=== PATIENT | female | born 1985 | race Caucasian/White ===

== ENCOUNTER → 2020-08-26 14:55 | Outpatient (BNVA) | payer MEDICAID, SELFPAY | PROVIDERS: Family Provider Obstetrics & Gynecology; Visit Provider Obstetrics & Gynecology | DX: Z34.90 Encounter for supervision of normal pregnancy, unspecified, unspecified trimester (principal) | CPT/HCPCS: 81000; 86803 ==

== ENCOUNTER → 2020-09-24 10:50 | Outpatient (BNVA) | payer MEDICAID, SELFPAY | PROVIDERS: Family Provider Obstetrics & Gynecology; Visit Provider Obstetrics & Gynecology | DX: Z34.90 Encounter for supervision of normal pregnancy, unspecified, unspecified trimester (principal) | CPT/HCPCS: 82950; 84315; 85025 ==

== ENCOUNTER → 2020-11-06 10:12 | Outpatient (BNVA) | payer MEDICAID, SELFPAY | PROVIDERS: Family Provider Obstetrics & Gynecology; Visit Provider Obstetrics & Gynecology | DX: Z34.90 Encounter for supervision of normal pregnancy, unspecified, unspecified trimester (principal); D64.9 Anemia, unspecified | CPT/HCPCS: 84315; 85027 ==

== ENCOUNTER → 2020-11-20 09:21 | Outpatient (BNVA) | payer MEDICAID, SELFPAY | PROVIDERS: Family Provider Obstetrics & Gynecology; Visit Provider Obstetrics & Gynecology | DX: Z34.90 Encounter for supervision of normal pregnancy, unspecified, unspecified trimester (principal) | CPT/HCPCS: 84315; 87081 ==

== ENCOUNTER → 2020-12-08 08:30 | Outpatient (BNVA) | payer MEDICAID, SELFPAY | PROVIDERS: Visit Provider Obstetrics & Gynecology | DX: Z34.90 Encounter for supervision of normal pregnancy, unspecified, unspecified trimester (principal); Z20.822 Contact with and (suspected) exposure to COVID-19 | CPT/HCPCS: 87635 ==

== ENCOUNTER 2020-12-11 12:30 | Inpatient (IN) | payer MEDICAID, SELFPAY ==
[2020-12-11] VITALS (19 sets, daily range): BP systolic 119–143; BP diastolic 71–90; PULSE 73–97; RESP 17; TEMP 36.9; BMI 29.4
[2020-12-11] MEDS: miSOPROStol 100 mcg tablet 25 MCG VAGINAL ×2 (13:49→18:03)
[2020-12-11 14:29] LABS: Basophils % 0.2 %; Eosinophils # 0.1 10^3/uL (0.0-0.8); Hematocrit 33.5 % (37.0-47.0); Hemoglobin 11.2 g/dL (11.5-15.3); Lymphocytes # 1.4 10^3/uL (0.8-4.8); Lymphocytes % 23.2 %; Mean Corpuscular HGB Conc 33.4 g/dL (30.0-36.0); Mean Corpuscular Hemoglobin 30.8 pg (28.0-34.0); Mean Platelet Volume 10.9 fL (7.4-10.4); Monocytes # 0.5 10^3/uL (0.2-0.9); Monocytes % 7.5 %; Neutrophils # 4.06 10^3/uL (1.8-7.7); Neutrophils % 67.6 %; Nucleated Red Blood Cells % 0 %; Platelet Count 262 10^3/cmm (130-400); Red Blood Count 3.64 10^6/uL (4.1-5.3); Red Cell Distribution Width 13.2 % (12.1-15.1)
[2020-12-11 14:47] LABS: Amphetamines Screen Urine Negative (Negative); Barbiturates Screen Urine Negative (Negative); Benzodiazepines Screen Urine Negative (Negative); Cocaine Screen Urine Negative (Negative); Opiate Screen Urine Negative (Negative); PCP Screen Urine Negative (Negative); THC Screen Urine Positive (Negative)
--- NOTE | 2020-12-11 15:23 | PM.OPHPUD ---
Labor & Delivery H&P Update Date of Procedure: December 11, 2020 Date H&P Performed: 11/25/20 H&P update information: I have reviewed H&P completed within last 30 days, I have examined patient prior to procedure and No changes to prior documentation Admission Diagnosis: Preop diagnosis: IUP @ 39 05/10, induction of labor
[2020-12-11] MEDS: fentaNYL 50 mcg/mL INJ 2mL IVP ×3 (18:11→22:22)
--- NOTE | 2020-12-11 18:22 | PC.NURSE ---
PT C/O BACK PAIN. PT HAS CHRONIC BACK PAIN AFTER BACK INJURY/BREAK AND TAKES PAIN MEDICATION DAILY AND THAT IS THE PAIN. FENTANYL GIVEN FOR BACK PAIN
[2020-12-12] VITALS (92 sets, daily range): BP systolic 99–191; BP diastolic 50–106; PULSE 71–142; RESP 15–18; TEMP 36.4–37.2; O2SAT 100
[2020-12-12] MEDS: fentaNYL 50 mcg/mL INJ 2mL IVP (00:11)
[2020-12-12] MEDS: lactated ringers 1,000 ML 999 ML (02:00)
--- NOTE | 2020-12-12 03:38 | ANES.PROC ---
Anesthesia Procedures Procedure/Date: 12/12/20 Epidural: Time Out Performed: Yes Consents Signed: Procedure Consent Consent: requested by attending/covering physician Lumbar Level: L3-L4 Epidural position: sitting Epidural procedure: sterile prep of area, 1% lidocaine to numb the area, 18 g needle, negative for paresthesia passed, neg for paresthesia, test dose given, 1.5% xylocaine 1:200k epi (3ml), placed PCEA, no systemic response, sterile dressing applied, L.U.D. no apparent complications and 0.2% Ropiavacaine @ mls/hr (13)
[2020-12-12] MEDS: miSOPROStol 100 mcg tablet 25 MCG VAGINAL (06:16)
--- NOTE | 2020-12-12 06:26 | PM.PN ---
Vitals/I&O/Wt Last Vital Signs Temp 98.4 F 12/11/20 13:09 Pulse 86 12/12/20 06:19 Resp 15 12/12/20 00:11 BP 132/72 12/12/20 06:19 Pulse Ox 100 12/12/20 03:17 12/11/20 12/11/20 12/12/20 14:59 22:59 06:59 Intake Total 240 / 240 Balance 240 / 240 Weight last 48 hrs Weight 166 lb Physical Exam Narrative: EXAM NARRATIVE: The patient is comfortable with her epidural. she has received two doses of cytotec. She has had a small amount of cervical change. Const: COMMON NORMALS: no acute distress, average body habitus, patient oriented x3, no limitations, healthy appearing, alert and well nourished GENERAL APPEARANCE: cooperative, comfortable, well kempt and well developed ORIENTATION/CONSCIOUSNESS: Yes awake, Yes oriented to person, Yes oriented to place and Yes oriented to time Resp: COMMON NORMALS: normal respiratory effort EFFORT & INSPECTION: Yes able to speak in complete sentences GI: COMMON NORMALS: Soft to palpation and non-tender PALPATION: Yes Soft to palpation Extremity: COMMON NORMALS: no clubbing, cyanosis or edema and no calf tenderness Neuro: COMMON NORMALS: patient oriented x3 SENSORIUM/ORIENTATION: Yes alert, Yes oriented to person, Yes oriented to place and Yes oriented to time Psych: APPEARANCE: Yes well kempt Urinary Catheter Management^: Sherwood: Cath Placed During This Visit: yes Urinary Catheter Date of Insertion: 12/12/20 Urinary Catheter Time of Insertion: 03:40 Data : 12/11/20 13:45 Attestations Medical Necessity Statement*: The patient will be here for two midnights Coding Level of Care Code Acute Gleason Operator for Lucas Escalante
--- NOTE | 2020-12-12 10:21 | PC.NURSE ---
Attempted to contact Doctor Mikey, message left to call back.
[2020-12-12] MEDS: dextrose 5%-lactated ringers 1,000 ML 125 ML IV ×2 (11:45→19:52)
[2020-12-12] MEDS: oxytocin 30 UNIT/500 ML BAG IV (11:49)
--- NOTE | 2020-12-12 23:55 | PM.DELIVERY ---
Delivery Note: Date of delivery: December 12, 2020 Pre-delivery diagnoses: iup at 39 3/7 Post-delivery diagnoses: same-delivered Procedure: Op report anesthesia: Epidural Delivering Physician: Mikey Estimated blood loss (mL): 25 Findings: Term male in the cephalic presentation Pre-Delivery Course: The patient was admitted for induction at term. She received three doses of cytotec and then pitocin was started. She received an epidural for pain management. She had AROM and proceeded to complete cervical dilation. the heart strip was category 2 with tachycardia in the 180's and 190's. minimal variability and accelerations. variable decelerations. Pitocin was discontinued. A fluid bolus of D5LR was given and Oxygen was placed. Delivery: The patient had complete cervical dilation and began to push. On exam, the baby was palpated to be straight OP presentation. The tachycardia was persistent in spite of resuscitation measures. The Kiwi vacuum was placed to attempt to rotate the baby. The baby was in the +3 station. The vacuum was pumped to the green region. the first attempt resulted in a pop off after 30 seconds. The vacuum was reapplied with the next contraction and again pumped to the green region and a pop off occurred after 14 seconds. The baby was moved and rotated enough that the heart rate reduced to the low 170's and high 160's. The patient was allowed to push spontaneously with contractions. The head delivered in the VANESSA position over an intact perineum under epidural anesthesia. The nose and mouth were bulb suctioned. The shoulders and body delivered atraumatically. The baby was placed onto the mother's abdomen. The cord was clamped and cut. The placenta delivered spontaneously. It was inspected and found to be intact. Inspection of the perineum revealed no repair was required. Estimated blood loss 25 mL. Apgars on baby were 8 at 1 minute and 9 at 5 minutes. Weight of baby is 7 pounds 2 ounces. On exam of the baby, he had a non expanding hematoma at the area where the vacuum was placed. Mother and baby were stable post delivery. Coding Level of Care Code Acute Anesthesiologist Assistant for Lucas Escalante
[2020-12-12] MEDS: ketorolac 30 mg/mL INJ IVP (23:58)
[2020-12-13] VITALS (18 sets, daily range): BP systolic 124–155; BP diastolic 68–85; PULSE 75–97; RESP 15–16; TEMP 36.5–36.7; O2SAT 99
[2020-12-13] MEDS: HYDROcodone-acetaminophen 5-325 mg Tablet PO (01:23)
[2020-12-13] MEDS: ibuprofen 800 mg tablet PO ×3 (10:32→20:32)
[2020-12-13] MEDS: prenatal vitamin Capsule 1 CAP PO (10:32)
[2020-12-13] MEDS: docusate sodium 100 mg Capsule PO (10:32)
--- NOTE | 2020-12-13 12:52 | PM.PN ---
Vitals/I&O/Wt Last Vital Signs Temp 97.7 F 12/13/20 11:35 Pulse 75 12/13/20 11:34 Resp 15 12/12/20 23:54 BP 128/78 12/13/20 11:34 Pulse Ox 100 12/12/20 03:17 12/12/20 12/13/20 12/13/20 22:59 06:59 14:59 Intake Total 1113.067 / 1219.933 500 / 1719.933 Output Total 800 / 800 300 / 1100 Balance 313.067 / 419.933 200 / 619.933 Physical Exam Narrative: EXAM NARRATIVE: The patient has no concerns today. She is doing well. Const: COMMON NORMALS: no acute distress, average body habitus, patient oriented x3, no limitations, healthy appearing, alert and well nourished GENERAL APPEARANCE: cooperative, comfortable, well kempt and well developed ORIENTATION/CONSCIOUSNESS: Yes awake, Yes oriented to person, Yes oriented to place and Yes oriented to time Resp: COMMON NORMALS: normal respiratory effort EFFORT & INSPECTION: Yes able to speak in complete sentences GI: COMMON NORMALS: Soft to palpation and non-tender PALPATION: Yes Soft to palpation Extremity: COMMON NORMALS: no clubbing, cyanosis or edema and no calf tenderness Neuro: COMMON NORMALS: patient oriented x3 SENSORIUM/ORIENTATION: Yes alert, Yes oriented to person, Yes oriented to place and Yes oriented to time Psych: COMMON NORMALS: mental status grossly normal, Normal thought process present, cooperative, normal affect and speech normal APPEARANCE: Yes grossly normal and Yes well kempt ATTITUDE: Yes calm and Yes engaged ACTIVITY/MOTOR BEHAVIOR: Yes appropriate eye contact SPEECH: Yes normal speech THOUGHT PROCESS: Normal thought process present Urinary Catheter Management^: Sherwood: Cath Placed During This Visit: yes, but has since been removed by the nurse Reason for Continuing Indwelling Catheter: Not indwelling catheter Urinary Catheter Date of Insertion: 12/12/20 Urinary Catheter Time of Insertion: 03:40 Date Urinary Catheter Removed: 12/12/20 Time Urinary Catheter Discontinued: 23:18 Data : 12/11/20 13:45 A&P Assessment and plan (1) state: routine care plan for discharge tomorrow Status: Acute Attestations Medical Necessity Statement*: she has already been here two midnights Coding Level of Care Code Acute Underwater Photographer for Chg Fwd Diagnoses state Z39.2
[2020-12-13 13:08] LABS: Hemoglobin 9.8 g/dL (11.5-15.3); Mean Corpuscular HGB Conc 32.7 g/dL (30.0-36.0); Mean Corpuscular Hemoglobin 31.2 pg (28.0-34.0); Mean Corpuscular Volume 95.5 fl (81-99); Mean Platelet Volume 11.3 fL (7.4-10.4); Platelet Count 169 10^3/cmm (130-400); Red Blood Count 3.14 10^6/uL (4.1-5.3); Red Cell Distribution Width 13.3 % (12.1-15.1); White Blood Count 15.5 10^3/uL (4.0-10.0)
[2020-12-14] VITALS (7 sets, daily range): BP systolic 124–154; BP diastolic 79–100; PULSE 69–80; RESP 13–17; TEMP 36.5–37; O2SAT 100
--- NOTE | 2020-12-14 07:31 | P.DS_ITS ---
Discharge Providers Date of Admission: 12/11/20 12:30 Date of Discharge: December 14, 2020 Attending Provider at Admission: Rosanne Jensen MD Attending Provider at Discharge: Rosanne Jensen MD Diagnoses at Discharge Discharge Diagnosis (1) state: Status: Acute Reason for Visit Reason for Visit: IUP Hospital Course Hospital Course The patient was admitted for induction at term. She had spontaneous delivery of a term . She did well and was ready for discharge on day #2 Physical Exam Narrative: EXAM NARRATIVE: The patient is doing well this morning. she has no concerns. Const: COMMON NORMALS: no acute distress, average body habitus, patient oriented x3, no limitations, healthy appearing, alert and well nourished Resp: COMMON NORMALS: normal respiratory effort EFFORT & INSPECTION: Yes able to speak in complete sentences GI: COMMON NORMALS: Soft to palpation and non-tender PALPATION: Yes Soft to palpation Extremity: COMMON NORMALS: no clubbing, cyanosis or edema and no calf tenderness Neuro: COMMON NORMALS: patient oriented x3 SENSORIUM/ORIENTATION: Yes alert Urinary Catheter Management^: Sherwood: Cath Placed During This Visit: yes, but has since been removed by the nurse Reason for Continuing Indwelling Catheter: Not indwelling catheter Urinary Catheter Date of Insertion: 12/12/20 Urinary Catheter Time of Insertion: 03:40 Date Urinary Catheter Removed: 12/12/20 Time Urinary Catheter Discontinued: 23:18 Discharge Data Data Completed and Pending: Labs from last 24 hours 12/13/20 12:55 WBC 15.5 H RBC 3.14 L Hgb 9.8 L Hct 30.0 L MCV 95.5 MCH 31.2 MCHC 32.7 RDW 13.3 Plt Count 169 MPV 11.3 H Vitals: Last Vital Signs Temp 97.7 F 12/14/20 04:00 Pulse 79 12/14/20 04:00 Resp 17 12/14/20 04:00 BP 129/79 12/14/20 04:00 Pulse Ox 99 12/13/20 20:57 Discharge Plan Discharge Patient Disposition: Home Condition: Stable Prescriptions: Continued prenat.vits,fransisca,[id number] Tablet 1 tab PO DAILY RF: 0 cyclobenzaprine 5 mg tablet 5 mg PO TID PRN (Reason: muscle spasm) Qty: 60 RF: 0 ferrous sulfate [Feosol] 325 mg (65 mg iron) tablet 325 mg PO BID RF: 0 tramadol 50 mg tablet 50 mg PO Q8H PRN (Reason: pain) Qty: 42 RF: 0 Discharge Orders: Discharge Order (Routine); Ordered 12/14/20 Ordered By: Rosanne Jensen Patient Instructions: Vitamins (By mouth), Depression (GEN), Bleeding (DC), OB Discharge Report, OB Food/Drug Interaction Guide, Opioid Safety, OB Home Care, OB Proud Parent Packet, OB Vaginal Deliveries - [facility] Discharge Attestations Time Spent in Discharge Care*: less than 30 min Quality Metrics Clinical Quality Measures During this hospital stay, did patient experience: None Coding Level of Care Code Acute Chg FW DC note Diagnoses state Z39.2
--- NOTE | 2020-12-14 07:42 | ANE.PACU2 ---
Inpatient post-anesthesia follow up: Airway intact: Yes Vital signs: Temperature 97.7 F Pulse Rate 79 Respiratory Rate 17 Blood Pressure 129/79 Pulse Oximetry 99 Oxygen Delivery Me thod Room Air Oxygen Flow Rate Fraction of Inspir ed Oxygen Hydration adequate: Yes Nausea and vomiting: No Pain level: 2 Mental status: Baseline
[2020-12-14] MEDS: ibuprofen 800 mg tablet PO ×3 (10:50→21:29)
[2020-12-14] MEDS: docusate sodium 100 mg Capsule PO (10:50)
[2020-12-14] MEDS: prenatal vitamin Capsule 1 CAP PO (10:51)
[2020-12-14 21:51] LABS: Basophils % 0.1 %; Eosinophils # 0.1 10^3/uL (0.0-0.8); Eosinophils % 1.4 %; Hematocrit 27.3 % (37.0-47.0); Hemoglobin 9.1 g/dL (11.5-15.3); Lymphocytes # 2.1 10^3/uL (0.8-4.8); Lymphocytes % 19.8 %; Mean Corpuscular HGB Conc 33.3 g/dL (30.0-36.0); Mean Corpuscular Hemoglobin 31.3 pg (28.0-34.0); Mean Corpuscular Volume 93.8 fl (81-99); Mean Platelet Volume 10.8 fL (7.4-10.4); Monocytes # 0.7 10^3/uL (0.2-0.9); Neutrophils # 7.37 10^3/uL (1.8-7.7); Neutrophils % 71.1 %; Nucleated Red Blood Cells % 0 %; Platelet Count 235 10^3/cmm (130-400); Red Blood Count 2.91 10^6/uL (4.1-5.3); Red Cell Distribution Width 13.2 % (12.1-15.1); White Blood Count 10.4 10^3/uL (4.0-10.0)
[2020-12-14 22:13] LABS: Urine Creatinine 172 mg/dL (28-217)
[2020-12-14 22:14] LABS: Alanine Aminotransferase 20 U/L (0-33); Albumin Level 2.8 g/dL (3.5-5.2); Alkaline Phosphatase 153 IU/L (35-105); Anion Gap 11.7 (5-19); Aspartate Amino Transferase 34 U/L (0-32); Blood Urea Nitrogen 8 mg/dL (6-20); Calcium 8.3 mg/dL (8.5-10.5); Carbon Dioxide 24 mmol/L (22-29); Chloride 105 mmol/L (98-107); Globulin 2.4 g/dL (1.3-4.6); Glomerular Filtration Rate 142.1 mL/min (90-130); Glucose 69 mg/dL (65-115); Osmolality Calculated 281 mOsm/kg (285-295); Potassium 3.7 mmol/L (3.5-5.1); Sodium 137 mmol/L (136-145); Total Bilirubin 0.2 mg/dL (0.15-1.2); Total Protein 5.2 g/dL (6.6-8.7)
[2020-12-14 22:17] LABS: UPRO/UCREAT Ratio 0.15 mg/mg CR; Urine Protein Random 26 mg/dL
== END 2020-12-14 22:46 | disposition home or self-care (01) | DRG 807 ==
LOC: OPOB 12:33 → OBGYN 16:52
PROVIDERS: Admitting Provider Obstetrics & Gynecology; Visit Provider Obstetrics & Gynecology
DX: O76 Abnormality in fetal heart rate and rhythm complicating labor and delivery (principal); Z37.0 Single live birth; Z3A.39 39 weeks gestation of pregnancy; O75.89 Other specified complications of labor and delivery; M54.9 Dorsalgia, unspecified; G89.29 Other chronic pain
CPT/HCPCS: 36415; 51702; 59025; 59409; 80053; 80306; 82570; 84156; 85025; 85027; 96374; 96376; J1885; J2795; J3010

== ENCOUNTER → 2021-03-01 14:18 | Outpatient (BNVA) | payer MEDICAID, SELFPAY | PROVIDERS: Visit Provider Obstetrics & Gynecology | DX: F41.9 Anxiety disorder, unspecified (principal) | CPT/HCPCS: 84443 ==

== ENCOUNTER 2022-02-09 13:58 | Emergency (ER) | payer MEDICAID, SELFPAY ==
[2022-02-09 14:58] LABS: Basophils % 0.2 %; Eosinophils % 0.1 %; Hematocrit 41.5 % (37.0-47.0); Hemoglobin 14.2 g/dL (11.5-15.3); Lymphocytes # 0.9 10^3/uL (0.8-4.8); Lymphocytes % 8.2 %; Mean Corpuscular HGB Conc 34.2 g/dL (30.0-36.0); Mean Corpuscular Hemoglobin 29.8 pg (28.0-34.0); Mean Platelet Volume 10.3 fL (7.4-10.4); Monocytes # 0.3 10^3/uL (0.2-0.9); Monocytes % 2.9 %; Neutrophils # 9.57 10^3/uL (1.8-7.7); Nucleated Red Blood Cells % 0 %; Platelet Count 378 10^3/cmm (130-400); Red Blood Count 4.77 10^6/uL (4.1-5.3); Red Cell Distribution Width 12.1 % (12.1-15.1); White Blood Count 10.9 10^3/uL (4.0-10.0)
[2022-02-09 15:14] LABS: HCG, Serum Qual Negative (Negative)
[2022-02-09 15:23] LABS: Alanine Aminotransferase 62 U/L (0-33); Albumin Level 4.7 g/dL (3.5-5.2); Alkaline Phosphatase 86 U/L (35-105); Anion Gap 20.5 (5-19); Aspartate Amino Transferase 37 U/L (0-32); Blood Urea Nitrogen 9 mg/dL (6-20); Carbon Dioxide 22 mmol/L (22-29); Chloride 101 mmol/L (98-107); Globulin 2.8 g/dL (1.3-4.6); Glomerular Filtration Rate 113.8 mL/min (90-130); Glucose 103 mg/dL (65-115); Lipase 17 U/L (13-60); Osmolality Calculated 289 mOsm/kg (285-295); Potassium 3.5 mmol/L (3.5-5.1); Sodium 140 mmol/L (136-145); Total Bilirubin 0.4 mg/dL (0.15-1.2); Total Protein 7.5 g/dL (6.6-8.7)
[2022-02-09 16:08] LABS: Add Urine Microscopic? NO; Charge for UA Resulting for Rev
[2022-02-09 16:29] LABS: Bilirubin Urine Neg (Negative); Blood Urine Neg (Negative); Glucose Urine UA Norm (Normal); Ketones Urine 1+ (Negative); Leukocyte Esterase Urine Negative (Negative); Nitrate Urine Negative (Negative); Protein Urine Neg (Negative); Specific Gravity, Urine 1.015 (1.005-1.030); Sulfosalicylic Acid Urine Negative (Negative); Urine Appearance Clear (CLEAR); Urine Color Yellow (Yellow); Urobilinogen Urine Norm (Negative); pH Urine 9 (5-7)
--- NOTE | 2022-02-09 18:47 | CTR_ITS ---
PROCEDURE INFORMATION: Exam: CT Abdomen And Pelvis With Contrast Exam date and time: 02/09/2022 7:17 PM Age: 37 years old Clinical indication: Abdominal pain; Additional info: Abd pain TECHNIQUE: Imaging protocol: Computed tomography of the abdomen and pelvis with contrast. Total images: 394 Radiation optimization: All CT scans at this facility use at least one of these dose optimization techniques: automated exposure control; mA and/or kV adjustment per patient size (includes targeted exams where dose is matched to clinical indication); or iterative reconstruction. Contrast material: OMNIPAQUE 350; Contrast volume: 95 ml; Contrast route: INTRAVENOUS (IV); COMPARISON: No relevant prior studies available. RADIATION DOSE METRICS: Total DLP (mGy-cm): 366.93 FINDINGS: Tubes, catheters and devices: An intrauterine device is present. Liver: Normal. No mass. Gallbladder and bile ducts: Normal. No calcified stones. No ductal dilation. Pancreas: Normal. No ductal dilation. Spleen: Normal. No splenomegaly. Adrenal glands: Normal. No mass. Kidneys and ureters: Normal. No hydronephrosis. Stomach and bowel: Unremarkable. No obstruction. No mucosal thickening. Appendix: No evidence of appendicitis. Intraperitoneal space: Unremarkable. No free air. No significant fluid collection. Vasculature: Incidental phleboliths noted. Lymph nodes: Unremarkable. No enlarged lymph nodes. Urinary bladder: Unremarkable as visualized. Reproductive: Retroverted uterus. Bones/joints: Mild chronic compression fracture at L2. Soft tissues: Unremarkable. CT/CT abdomen pelvis w con* [id number] IMPRESSION: No acute intra-abdominal pathology.
--- NOTE | 2022-02-09 18:52 | W.ED.ABDPA2 ---
HPI - Abdominal Pain General: Chief Complaint: Abdominal Pain Stated Complaint: Abd pains, N/V Time Seen by Provider: 02/09/22 18:27 Source: patient Mode of arrival: ambulatory Limitations: no limitations History of Present Illness: 37-year-old female who states she been having epigastric pain along with vomiting throughout the day. States its very sharp in nature states that she had this in the past and been told she has gastritis she states she used to take famotidine but has not been taking it. She denies any radiation of her pain states pain currently is an 8 out of 10 denies any fevers. States that seem to be worse with eating. Associated Symptoms: Reports nausea and vomiting; Denies chills, dysuria and fever(s) Related Data: Date of Last Menstrual Period: 01/26/22 Review of Systems Const: Denies: fever(s), chills, body aches or change in appetite Eyes: Denies: blurry vision or eye discomfort ENMT: Denies: throat pain or dental pain Card: Denies: chest pain Resp: Denies: dyspnea GI: Reports: abdominal pain, nausea and vomiting : Denies: dysuria Musc: Denies: neck pain or back pain Skin/Breast: Denies: rash Neuro: Denies: headache(s) Psych: Denies: depression Kyree/Lymph: Denies: easy bruising All/Imm: Denies: urticaria PFSH ED PFSH: Medical History Broken back L1 and L2 broken vertebrae Bulging disc History of staph infection Family History Family/Other Diabetes Maternal Aunt Father Hypertension Mother Hypertension Denies family history of Clotting disorder Hyperlipidemia Chronic kidney disease (CKD) Bleeding disorder Cancer Thyroid disease Stroke Female Reproductive History: Date of last menstrual period: 01/26/22 Physical Exam Const: COMMON NORMALS: no acute distress, patient oriented x3 and healthy appearing HENMT: COMMON NORMALS: normocephalic and atraumatic HEAD & SCALP: normocephalic and atraumatic Eye: COMMON NORMALS: Equal, round and reactive pupils present and EOMs intact bilaterally PUPIL: Yes Equal, round and reactive pupils present Neck/C-Spine: COMMON NORMALS: full ROM and supple Chest: COMMONS NORMALS: normal inspection of the chest and normal palpation of entire chest wall Resp: COMMON NORMALS: normal respiratory effort, No retractions, No use of accessory muscles and clear to auscultation bilaterally AUSCULTATION: clear to auscultation bilaterally Cardio: COMMON NORMALS: regular rate, regular rhythm and No murmurs present (Cardio) RATE: regular rate RHYTHM: regular rhythm GI: COMMON NORMALS: Normal to inspection, nondistended, normoactive bowel sounds present, Soft to palpation, non-tender and no masses PALPATION: Yes Soft to palpation Extremity: COMMON NORMALS: normal to inspection and full ROM Neuro: COMMON NORMALS: patient oriented x3, moves all extremities and no focal motor deficits Psych: COMMON NORMALS: mental status grossly normal, Normal thought process present and cooperative THOUGHT PROCESS: Normal thought process present Skin: COMMON NORMALS: no rashes or lesions noted and no wounds GENERAL SKIN EXAM: no rashes or lesions noted Course Vital Signs: Vital signs: Vital Signs Respiratory Rate 16 02/09/22 19:10 MDM - Abdominal Pain Medical Decision Making Patient presents with abdominal pain likely gastritis patient's blood work and CT scan here are all normal she is stable for discharge she is to follow-up with her PCP and return if worsening she understands agrees to plan. Lab Data : 02/09/22 14:25 02/09/22 14:25 Labs/Radiology: Radiology Impressions Abdomen/Pelvis CT 02/09/22 18:47 IMPRESSION: No acute intra-abdominal pathology. ADDENDUM: 02/09/222010 On further evaluation, the patient's IUD is noted to be low in position with arms extending into myometrium. This is best seen on the sagittal view. Laboratory Results WBC 10.9 10^3/uL (4.0-10.0) H 02/09/22 14:25 RBC 4.77 10^6/uL (4.1-5.3) 02/09/22 14:25 Hgb 14.2 g/dL (11.5-15.3) 02/09/22 14:25 Hct 41.5 % (37.0-47.0) 02/09/22 14:25 MCV 87.0 fl (81-99) 02/09/22 14:25 MCH 29.8 pg (28.0-34.0) 02/09/22 14:25 MCHC 34.2 g/dL (30.0-36.0) 02/09/22 14:25 RDW 12.1 % (12.1-15.1) 02/09/22 14:25 Plt Count 378 10^3/cmm (130-400) 02/09/22 14:25 MPV 10.3 fL (7.4-10.4) 02/09/22 14:25 Neut % (Auto) 88.0 % 02/09/22 14:25 Lymph % (Auto) 8.2 % 02/09/22 14:25 Dare % (Auto) 2.9 % 02/09/22 14:25 Eos % (Auto) 0.1 % 02/09/22 14:25 Baso % (Auto) 0.2 % 02/09/22 14:25 Neut # (Auto) 9.57 10^3/uL (1.8-7.7) H 02/09/22 14:25 Lymph # (Auto) 0.9 10^3/uL (0.8-4.8) 02/09/22 14:25 Dare # (Auto) 0.3 10^3/uL (0.2-0.9) 02/09/22 14:25 Eos # (Auto) 0.0 10^3/uL (0.0-0.8) 02/09/22 14:25 Baso # (Auto) 0.0 10^3/uL (0.0-0.1) 02/09/22 14:25 Nucleated RBC % (auto) 0 % 02/09/22 14:25 Nucleated RBCs # 0.0 /100WBC 02/09/22 14:25 Sodium 140 mmol/L (136-145) 02/09/22 14:25 Potassium 3.5 mmol/L (3.5-5.1) 02/09/22 14:25 Chloride 101 mmol/L (98-107) 02/09/22 14:25 Carbon Dioxide 22 mmol/L (22-29) 02/09/22 14:25 Anion Gap 20.5 (5-19) H 02/09/22 14:25 BUN 9 mg/dL (6-20) 02/09/22 14:25 Creatinine 0.6 mg/dL (0.5-0.9) 02/09/22 14:25 GFR Calculation 113.8 mL/min (90-130) 02/09/22 14:25 Glucose 103 mg/dL (65-115) 02/09/22 14:25 Calculated Osmolality 289 mOsm/kg (285-295) 02/09/22 14:25 Calcium 10.0 mg/dL (8.5-10.5) 02/09/22 14:25 Total Bilirubin 0.4 mg/dL (0.15-1.2) 02/09/22 14:25 AST 37 U/L (0-32) H 02/09/22 14:25 ALT 62 U/L (0-33) H 02/09/22 14:25 Alkaline Phosphatase 86 U/L (35-105) 02/09/22 14:25 Total Protein 7.5 g/dL (6.6-8.7) 02/09/22 14:25 Albumin 4.7 g/dL (3.5-5.2) 02/09/22 14:25 Globulin 2.8 g/dL (1.3-4.6) 02/09/22 14:25 Lipase 17 U/L (13-60) 02/09/22 14:25 HCG, Qual Negative (Negative) 02/09/22 14:25 Urine Color Yellow (Yellow) 02/09/22 15:40 Urine Appearance Clear (CLEAR) 02/09/22 15:40 Urine pH 9 (5-7) H 02/09/22 15:40 Ur Specific Winston 1.015 (1.005-1.030) 02/09/22 15:40 Urine Protein Neg (Negative) 02/09/22 15:40 Urine Glucose (UA) Norm (Normal) 02/09/22 15:40 Urine Ketones 1+ (Negative) H 02/09/22 15:40 Urine Blood Neg (Negative) 02/09/22 15:40 Urine Nitrate Negative (Negative) 02/09/22 15:40 Urine Bilirubin Neg (Negative) 02/09/22 15:40 Prot Sulfosalicylic Acd Negative (Negative) 02/09/22 15:40 Urine Urobilinogen Norm mg/dL (Negative) 02/09/22 15:40 Ur Leukocyte Esterase Negative (Negative) 02/09/22 15:40 Discharge Plan Discharge Patient Disposition: Home Clinical Impression: Abdominal pain Condition: Stable Prescriptions: New Protonix 40 mg tablet,delayed release (DR/EC) 40 mg PO DAILY Qty: 60 0RF No Action ParaGard T 380A 380 square mm intrauterine device intrauterine ibuprofen 200 mg capsule 200 mg PO Q6H PRN buspirone 5 mg tablet 5 mg PO BID Qty: 60 6RF tramadol 50 mg tablet 50 mg PO BID PRN (Reason: pain) Qty: 23 0RF Discharge Orders: Discharge ED (Routine); Ordered 02/09/22 Ordered By: Rebecca Mota Referrals: Davide Lynn DO [Physician] - 1-3 days Discharge Diet: Advance as tolerated Discharge Activity: Resume usual activity Patient Instructions: Abdominal Pain (ED) Coding Level of Care Code ED Motion Picture Equipment Machinist for Siming Fwd Exam Comprehensive
[2022-02-09 19:10] VITALS: RESP 16
[2022-02-09] MEDS: morphine 4 mg/mL SDV 1 mL IVP (19:10)
[2022-02-09] MEDS: ondansetron 2 mg/ML SDV 2 mL 4 MG IVP (19:10)
[2022-02-09] MEDS: sodium chloride 0.9% 1,000 ML 999 ML IV (19:10)
[2022-02-09] MEDS: iohexol 350 mg/mL 500 mL Btl (per mL) IV (19:27)
[2022-02-09 19:30] VITALS: BP 145/106; BP 181/112; PULSE 104; PULSE 108; RESP 14; RESP 16; O2SAT 92; O2SAT 98
[2022-02-09 20:19] VITALS: BP 152/83; PULSE 88; RESP 16; O2SAT 98
[2022-02-09] MEDS: HYDROcodone-acetaminophen 7.5-325 mg Tablet 1 TAB PO (20:30)
--- NOTE | 2022-02-10 10:01 | DCPLANNER ---
Addendum entered by Autumn Rodriguez 02/22/22 11:13: consumer lending manager received the following message from the general surgery clinic regarding follow up appointment: due to Dr. Lynn not being in network with [facility] and dr. Waldrop has no available scope days for the remaining of the year. Please refer patient elsewhere. consumer lending manager attempted to call patient and inform patient of this to confirm who patient would like to be referred to. consumer lending manager unable to speak with patient. Original Note: consumer lending manager had message to schedule a follow up appointment for patient with general surgery. consumer lending manager sent patients information to the front office staff at general surgery. Patients information will be printed and reviewed. Clinic will call patient with appointment information.
== END 2022-02-09 20:33 | disposition home or self-care (01) ==
PROVIDERS: Physician Assistant; Emergency Provider Emergency Medicine
DX: R10.9 Unspecified abdominal pain (principal)
CPT/HCPCS: 36415; 74177; 80053; 81003; 83690; 84703; 85025; 96361; 96374; 96375; 99285; J2270; J2405; J7030; Q9967

== ENCOUNTER → 2022-09-13 16:25 | Outpatient (BNVA) | payer MEDICAID, SELFPAY | PROVIDERS: Visit Provider Dermatology | DX: Z01.89 Encounter for other specified special examinations (principal) ==